=== PATIENT | female | born 2000 | race Caucasian/White ===

== ENCOUNTER 2020-05-16 13:21 | Emergency (ER) | payer OTHER ==
[~2020-05-16] VITALS: Ht 172.7 cm; Wt 40.8 kg
== END 2020-05-16 15:25 | disposition home or self-care (01) ==
LOC: ED 13:21
DX: R10.2 Pelvic and perineal pain (principal)
CPT/HCPCS: 84702; 99284

== ENCOUNTER 2020-11-12 16:14 | Emergency (ER) | payer BC, OTHER ==
[~2020-11-12] VITALS: Ht 172.7 cm; Wt 49.0 kg
== END 2020-11-12 18:32 | disposition home or self-care (01) ==
LOC: ED 16:14
DX: O99.891 Other specified diseases and conditions complicating pregnancy (principal); R10.2 Pelvic and perineal pain
CPT/HCPCS: 76815; 81001; 99284-25

== ENCOUNTER 2022-02-05 00:58 | Emergency (ER) | payer BC, OTHER ==
[~2022-02-05] VITALS: Ht 172.7 cm; Wt 47.2 kg
[2022-02-05] MEDS ORDERED: NORGESTIMATE-E1 EAC1 PO (01:10)
[2022-02-05] MEDS ORDERED: AMOXICILLIN500 MG PO (01:26)
== END 2022-02-05 02:15 | disposition home or self-care (01) ==
LOC: ED 00:58
DX: H66.91 Otitis media, unspecified, right ear (principal)
CPT/HCPCS: 99282; A9270

== ENCOUNTER 2022-04-20 16:50 | Emergency (ER) | payer BC, OTHER ==
[~2022-04-20] VITALS: Ht 172.7 cm; Wt 48.0 kg
[~2022-04-20 16:50] MED LIST: AMOXICILLIN500 MG PO; NORGESTIMATE-E1 EAC1 PO
[2022-04-20] MEDS ORDERED: PRENATA CHEWAB1 EACH PO (17:11)
== END 2022-04-20 17:46 | disposition home or self-care (01) ==
LOC: ED 16:50
DX: J02.9 Acute pharyngitis, unspecified (principal); Z91.018 Allergy to other foods
CPT/HCPCS: 87081; 87880; 99283

== ENCOUNTER 2022-05-31 04:50 | Emergency (ER) | payer BC, OTHER ==
[~2022-05-31] VITALS: Ht 172.7 cm; Wt 48.5 kg
[~2022-05-31 04:50] MED LIST changes: +PRENATA CHEWAB1 EACH PO
== END 2022-05-31 06:16 | disposition home or self-care (01) ==
LOC: ED 04:50
DX: O99.512 Diseases of the respiratory system complicating pregnancy, second trimester (principal); J10.1 Influenza due to other identified influenza virus with other respiratory manifestations; Z20.822 Contact with and (suspected) exposure to COVID-19; Z3A.14 14 weeks gestation of pregnancy
CPT/HCPCS: 87502; 99283; U0003

== ENCOUNTER 2022-06-03 04:25 | Emergency (ER) | payer BC, OTHER ==
[~2022-06-03] VITALS: Ht 266.7 cm; Wt 48.1 kg
--- OUTSIDE RECORDS SUMMARY | 2022-06-03 04:32 | XMS ---
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 PHONE: Unknown LINDSAY SALMON Obstetrics \T\ Gynecology: Gynecology Current DO A PHONE: Unknown KYAW DUATRE Obstetrics \T\ Gynecology Current PHONE: Unknown Jewel has no Care Guidelines for this patient. E.D. VISIT COUNT (12 MO.) 4 [facility] TOTAL 4 NOTE: Visits indicate total known visits. ED/UCC VISIT TRACKING (12 MO.) 06/03/2022 04:25 [facility] [place] TYPE: Emergency COMPLAINT: - FLU SYMPTOMS, EAR ACHE 05/31/2022 04:51 [facility] [place] TYPE: Emergency COMPLAINT: - FEVER 101 DIAGNOSES: - Diseases of the respiratory system complicating , second trimester - Contact with and (suspected) exposure to COVID-19 - Influenza due to other identified influenza virus with other respiratory manifestations - 14 weeks gestation of - Other specified diseases and conditions complicating 04/20/2022 16:51 [facility] [place] TYPE: Emergency COMPLAINT: - SORE THROAT DIAGNOSES: - Acute upper respiratory infection, unspecified - Allergy to other foods - Acute pharyngitis, unspecified 02/05/2022 00:58 [facility] [place] TYPE: Emergency COMPLAINT: - EAR PAIN DIAGNOSES: - Nasal congestion - Otitis media, unspecified, right ear INPATIENT VISIT TRACKING (12 MO.) No inpatient visits to display in this time frame [email or web address]
[2022-06-03] MEDS ORDERED: FLONASE ALLERG9.9 ML NAS (05:09)
[2022-06-03] MEDS ORDERED: AMOXICILLIN500 MG PO (05:09)
== END 2022-06-03 05:27 | disposition home or self-care (01) ==
LOC: ED 04:25
DX: O99.891 Other specified diseases and conditions complicating pregnancy (principal); H66.92 Otitis media, unspecified, left ear; Z91.012 Allergy to eggs; Z3A.15 15 weeks gestation of pregnancy
CPT/HCPCS: 99282; A9270